=== PATIENT | female | born 1960 | race Caucasian/White ===

== ENCOUNTER 2020-01-25 15:42 | Emergency (ER) | payer BC, SELFPAY ==
[2020-01-25 15:56] VITALS: BP 151/81; PULSE 77; RESP 16; TEMP 37.8; O2SAT 99
--- NOTE | 2020-01-25 15:58 | ED.ANIMALBIT ---
HPI - Animal Bite General Chief Complaint: Animal Bite Stated Complaint: Dog Bite Time Seen by Provider: 01/25/20 15:58 Source: patient and RN notes reviewed History of Present Illness HPI narrative: Patient is a 59-year-old female that presents the urgent care with complaints of a dog bite to the left arm. Patient states that she was walking with her friend's dog, a pit bull mix, and he attacked her for unknown reasons. Patient states that he went through 3 layers of clothing and still managed to make 3 puncture wounds on the left arm. Patient states that the incident occurred just prior to arrival. Denies any other acute injuries or complaints. Patient is not up-to-date on her tetanus shot. No acute distress noted. Patient read the plan of care. Related Data Home Medications Medication Instructions Recorded Confirmed Unknown Htn Medication 01/25/20 Unknown Thyroid Medication 01/25/20 levothyroxine 100 mcg PO DAILY 01/25/20 01/25/20 losartan 50 mg PO DAILY 01/25/20 01/25/20 venlafaxine [Effexor XR] 75 mg PO DAILY 01/25/20 01/25/20 Allergies Allergy/AdvReac Type Severity Reaction Status Date / Time No Known Allergies Allergy Verified 01/25/20 16:03 Review of Systems Review of Systems: Narrative: CONSTITUTIONAL: Denies fever, chills, or sweats. EYES: Denies visual changes, redness, or discharge. ENT: Denies rhinorrhea, congestion, sore throat, or otalgia. CARDIOVASCULAR: Denies chest pain, palpitations, or edema. RESPIRATORY: Denies cough or dyspnea. GASTROINTESTINAL: Denies abdominal pain, nausea, vomiting, or diarrhea. GENITOURINARY: Denies dysuria or hematuria. SKIN: Reports of a dog bite to the left arm MUSCULOSKELETAL: Denies back pain, joint pain, or myalgia. NEUROLOGIC: Denies headache, numbness, or weakness. All other systems reviewed are negative, except as documented in HPI. PMFSH Social History Social History Gender identity (if verbalized by the patient): Female Comments At the time of my signature, I reviewed and agree with the nursing past medical, surgical, social, and family history. There is no relevant family history pertinent to the patient complaint. Exam Narrative: Exam Narrative: GENERAL: This is a well-nourished, well-developed patient, in no apparent distress. HEAD: normocephalic, atraumatic. EYES: PERRL. Sclera clear/white. Vision is grossly intact. EARS: External ears normal NOSE: External nose normal with no obvious nasal discharge THROAT: Mucous membranes moist NECK: Neck supple CARDIOVASCULAR: Regular rate and rhythm without murmurs, gallops, or rubs. RESPIRATORY: Clear to auscultation. Breath sounds equal bilaterally. No wheezes, rales, or rhonchi. SKIN: 3 puncture wounds noted to the lateral left upper arm, near the elbow. 2.5 cm puncture wound with flap, 2 cm puncture wound with flap and 0.5 cm puncture wound. 2.5 cm puncture wound with approximate 0.25 cm depth NEURO: awake, alert, and oriented to person, place and time. There were no obvious focal neurologic abnormalities. EXTREMITIES: No clubbing, cyanosis, or edema. No joint tenderness, effusion, or edema noted. No calf tenderness. Negative Homans sign bilaterally. Course Vital Signs Vital signs: Vital Signs Temperature 100.1 F H 01/25/20 15:56 Pulse Rate 77 01/25/20 15:56 Respiratory Rate 16 01/25/20 15:56 Blood Pressure 151/81 H 01/25/20 15:56 Pulse Oximetry 99 01/25/20 15:56 Temperature 100.1 F H 01/25/20 15:56 Pulse Rate 77 01/25/20 15:56 Respiratory Rate 16 01/25/20 15:56 Blood Pressure 151/81 H 01/25/20 15:56 Pulse Oximetry 99 01/25/20 15:56 Reviewed?patient is informed that they may have pre-hypertension or hypertension based on a blood pressure reading in the department. I recommend the patient call the primary care provider listed on their discharge instructions or a physician of their choice this week to arrange follow-up for further evaluation of possible pre-hypert
[2020-01-25] MEDS: TETANUS,DIPHTHERIA,AC PERTUSSIS ADULT (0.5 ML) BOOSTRIX IM (16:18)
== END 2020-01-25 17:00 | disposition home or self-care (01) ==
PROVIDERS: Emergency Provider Nurse Practitioner Family
DX: S41.132A Puncture wound without foreign body of left upper arm, initial encounter (principal); W54.0XXA Bitten by dog, initial encounter; Z23 Encounter for immunization; I10 Essential (primary) hypertension; E03.9 Hypothyroidism, unspecified; Z85.3 Personal history of malignant neoplasm of breast; F41.9 Anxiety disorder, unspecified
CPT/HCPCS: 90471; 90715; 99213; G0463

== ENCOUNTER 2021-05-30 13:03 | Emergency (ER) | payer BC, SELFPAY ==
[2021-05-30 13:20] VITALS: BP 128/66; PULSE 68; RESP 16; TEMP 36.1; O2SAT 100
--- NOTE | 2021-05-30 13:25 | ED.EAR ---
HPI - Ear Problem General Chief complaint: Ear Stated complaint: EAR INFECTION Time Seen by Provider: 05/30/21 13:26 Source: patient and RN notes reviewed Mode of arrival: ambulatory Limitations: no limitations History of Present Illness HPI Narrative: 61-year-old female presents to the [facility] with complaints of right ear pain. Patient states that she was seen at urgent care on 26 April for similar symptoms. Symptoms did improve. For the last 24 hours has gotten worse. Related Data Home Medications Medication Instructions Recorded Confirmed losartan 50 mg PO DAILY 01/25/20 01/25/20 venlafaxine [Effexor XR] 75 mg PO DAILY 01/25/20 01/25/20 alprazolam 05/30/21 fluticasone propionate INTRANASAL 05/30/21 levothyroxine 05/30/21 liothyronine mcg 05/30/21 montelukast mg 05/30/21 Allergies Allergy/AdvReac Type Severity Reaction Status Date / Time No Known Allergies Allergy Verified 01/31/20 14:24 Review of Systems Constitutional: Constitutional: Reports no additional constitutional complaints, Denies chills and Denies fever(s) Eyes: Eyes: Reports no additional eye complaints ENT: Reports as per HPI Comments: Right ear pain Cardiovascular: Cardiovascular: Reports no additional cardiovascular complaints Respiratory: Respiratory: Reports no additional respiratory complaints Gastrointestinal: Gastrointestinal: Reports no additional gastrointestinal complaints Musculoskeletal: Musculoskeletal: Reports no additional musculoskeletal complaints Integumentary/Breasts: Skin/Breast: Reports system reviewed and no additional complaints, except as docu Neurologic: Reports system reviewed and no additional complaints, except as documented Psychiatric: Psychiatric: Reports no additional psychiatric complaints Allergic/Immunologic: Allergic/Immunologic: Reports no additional allergic/immunologic complaints [facility] Past Medical History Medical History (Updated 06/01/21 @ 11:13 by Latonia Giraldo) Anxiety Asthma Hypertension Seasonal allergies Thyroid disorder Surgical History Surgical History (Updated 01/31/20 @ 14:25 by Martha Bradford CMA) History of mastectomy 2009 Social History Social History (Updated 01/31/20 @ 14:26 by Martha Bradford CMA) Smoking status: Never smoker Alcohol intake: never Substance use: never Gender identity (if verbalized by the patient): Female Comments At the time of my signature, I reviewed and agree with the nursing past medical, surgical, social, and family history. There is no relevant family history pertinent to the patient complaint. Exam Const: General: healthy appearing, no acute distress and alert Nutritional Appearance: well nourished Orientation/consciousness: patient oriented x3 Limitations: no limitations HENMT: Head: normal to inspection Ears: hearing grossly normal bilaterally, external ears normal, TM normal on the left, EAC's normal, mastoids normal and TM abnormal with fluid behind the TM on the right General nose exam: Normal external nose present Face and sinus: normal facial exam Mouth: Yes Normal oral and palatal mucosa present Throat: posterior oropharynx normal Eyes: Conjunctivae: conjunctivae normal Pupils: Equal, round and reactive pupils present Neck: Neck: normal visual inspection, no lymphadenopathy and no meningeal signs Chest: Chest palpation & inspection: normal inspection of the chest Resp: Effort & Inspection: normal respiratory effort Auscultation: clear to auscultation bilaterally Cardio: Rate: regular rate Rhythm: regular rhythm Back/Spine/Pelvis: Back: no CVA tenderness Skin: General skin exam: normal color Rashes: no rashes Wounds: no wounds Neuro: General: patient oriented x3, moves all extremities, no meningeal signs and no focal motor deficits Speech: normal speech Gait exam (Neuro): Normal gait present Extrem: General: normal to inspection Psych: Appearance: grossly normal and well
== END 2021-05-30 13:43 | disposition home or self-care (01) ==
PROVIDERS: Emergency Provider Nurse Practitioner
DX: H65.01 Acute serous otitis media, right ear (principal); J32.9 Chronic sinusitis, unspecified; J45.909 Unspecified asthma, uncomplicated; I10 Essential (primary) hypertension; E03.9 Hypothyroidism, unspecified
CPT/HCPCS: 99213; G0463

== ENCOUNTER 2024-01-09 05:59 | Emergency (ER) | payer BC, SELFPAY ==
[2024-01-09] VITALS (8 sets, daily range): BP systolic 151–184; BP diastolic 71–79; PULSE 64–74; RESP 14–24; TEMP 36.5; O2SAT 99–100
--- NOTE | 2024-01-09 07:25 | ED.GENADULT ---
HPI - General Adult General Chief complaint: Recheck/Abnormal Lab/Rx Stated complaint: HTN Time Seen by Provider: 01/09/24 07:24 Source: patient History of Present Illness HPI narrative: 63 years old white female drove herself to the emergency room because of elevated blood pressure systolic above 200, diastolic above 100. Patient run out of alprazolam 0.5 mg every 8 hours as needed she denies any fever, chills, vomiting, diarrhea, abdominal pain, chest pain or back pain. Slight bilateral headache, improving on Tylenol, and aspirin. Patient currently on Effexor for anxiety/depression 1 A1c the patient in the room blood pressure is 159/75. Patient so surprised. Would like to have a prescription for alprazolam Patient reported pain at the right ear for the last 6 weeks. No discharge, no fever or chills complaint: 63 years old white female drove herself to the emergency room because felt, Related Data Home Medications Medication Instructions Recorded Confirmed losartan 50 mg tablet 50 mg PO DAILY 01/25/20 01/25/20 venlafaxine 75 mg capsule,extended 75 mg PO DAILY 01/25/20 01/25/20 release 24 hr (Effexor XR) alprazolam 0.5 mg tablet 05/30/21 fluticasone propionate 50 intranasal 05/30/21 mcg/actuation nasal spray,suspension levothyroxine 88 mcg tablet 05/30/21 liothyronine 5 mcg tablet mcg 05/30/21 montelukast 10 mg tablet mg 05/30/21 Allergies Allergy/AdvReac Type Severity Reaction Status Date / Time No Known Allergies Allergy Verified 01/31/20 14:24 Review of Systems Review of Systems: All systems reviewed & are unremarkable except as noted in HPI and below PMFSH Past Medical History Medical History Anxiety Asthma Hypertension Seasonal allergies Thyroid disorder Surgical History Surgical History History of mastectomy 2009 Social History Social History Smoking status: Never smoker Alcohol intake: never Substance use: never Gender identity (if verbalized by the patient): Female Exam Narrative: General appearance: Well-developed, well-nourished Skin: Normal color Head: Normocephalic, nontraumatic Eyes: Clear conjunctiva ENT: Oropharynx normal, right auditory canal erythema, tenderness, opaque discoloration of the tympanic membrane nose normal Neck: Supple, nontender Chest and respiratory: Airway patent, no respiratory distress, no accessory muscle use Heart: Regular rate/rhythm Abdomen: Soft, nontender, no organomegaly, quiet bowel sounds Vascular: Normal peripheral pulses, normal capillary refill. Musculoskeletal: Normal range of motion, nontender back Neurologic: Alert and oriented ?3, [employer] is normal as tested, no gross motor deficit Course Vital Signs Vital signs: Vital Signs Temperature 36.5 C 01/09/24 06:10 Pulse Rate 72 01/09/24 06:10 Respiratory Rate 18 01/09/24 06:10 Blood Pressure 184/71 H 01/09/24 06:10 Pulse Oximetry 100 01/09/24 06:10 Oxygen Delivery Room Air 01/09/24 06:10 Temperature 36.5 C 01/09/24 06:10 Pulse Rate 72 01/09/24 06:10 Respiratory Rate 18 01/09/24 06:10 Blood Pressure 184/71 H 01/09/24 06:10 Pulse Oximetry 100 01/09/24 06:10 Oxygen Delivery Room Air 01/09/24 06:10 Medical Decision Making MDM Narrative Medical decision making narrative: Patient blood pressure was above 200 at home, in the ED 159/75, run out of Xanax, anxiety,/depression is my concern. The ED patient received 1 tablet of Ativan, no labs or imaging required at this time Differential Diag
[2024-01-09] MEDS: LORazepam (*CRX) 0.5 MG TABLET 1 MG PO (07:46)
== END 2024-01-09 08:10 | disposition home or self-care (01) ==
LOC: ANHED 07:53
PROVIDERS: Emergency Provider Emergency Medicine
DX: I10 Essential (primary) hypertension (principal); F41.8 Other specified anxiety disorders; H60.91 Unspecified otitis externa, right ear; J45.909 Unspecified asthma, uncomplicated; E07.9 Disorder of thyroid, unspecified
CPT/HCPCS: 99283; A9270